=== PATIENT | female | born 1990 | race African-American/Black ===

== ENCOUNTER 2023-10-12 14:01 | Emergency (ER) | payer SELFPAY ==
[~2023-10-12] VITALS: Ht 167.6 cm; Wt 120.0 kg
[2023-10-12 14:09] VITALS: BP 146/90; PULSE 70; RESP 18; TEMP 98.2; O2SAT 98
== END 2023-10-12 16:03 | disposition home or self-care (01) ==
LOC: ER 14:01
DX: T19.2XXA Foreign body in vulva and vagina, initial encounter (principal); Z90.49 Acquired absence of other specified parts of digestive tract; X58.XXXA Exposure to other specified factors, initial encounter; Y93.89 Activity, other specified; Y92.89 Other specified places as the place of occurrence of the external cause; Y99.8 Other external cause status
CPT/HCPCS: 99284; Z7610

== ENCOUNTER 2024-08-12 12:37 | Emergency (ER) | payer SELFPAY ==
[~2024-08-12] VITALS: Ht 157.5 cm; Wt 105.0 kg
[2024-08-12 12:50] VITALS: O2SAT 98
[2024-08-12] MEDS ORDERED: DOXY100T2 MT (21:54)
[2024-08-12 22:13] VITALS: BP 123/86; PULSE 81; RESP 18; TEMP 36.83628; O2SAT 98
== END 2024-08-12 22:16 | disposition home or self-care (01) ==
LOC: ER 12:37
DX: T19.2XXA Foreign body in vulva and vagina, initial encounter (principal); Z90.49 Acquired absence of other specified parts of digestive tract; W44.9XXA Unspecified foreign body entering into or through a natural orifice, initial encounter; Y93.89 Activity, other specified; Y92.89 Other specified places as the place of occurrence of the external cause; Y99.8 Other external cause status
CPT/HCPCS: 99284